=== PATIENT | female | born 1960 | race Caucasian/White ===

== ENCOUNTER 2018-11-23 09:08 | Emergency (ER) | payer BC ==
[2018-11-23 09:33] VITALS: BP 132/62
--- NOTE | 2018-11-23 10:11 | UC ---
Throat Pain/Nasal Mike HPI - HPI Summary HPI Summary: 3 wks of hoarseness at night, sore throat, occasional cough which is worse at night. denies fever, sob. has tried cepacol which sometimes helps and tessalone perles. Evaluated 1 wk ago and went to another urgent care where they rx'd her these meds. was told she was neg. for strep at that time as well. - History of Current Complaint Chief Complaint: UCGeneralIllness Stated Complaint: SORE THROAT Time Seen by Provider: 11/23/18 09:16 Hx Obtained From: Patient Pain Intensity: 8 Pain Scale Used: 0-10 Numeric Cough: Nonproductive Associated Signs & Symptoms: Negative: Wheezing - Allergies/Home Medications Allergies/Adverse Reactions: Allergies Allergy/AdvReac Type Severity Reaction Status Date / Time carbamazepine [From Tegretol] Allergy hives' Verified 11/23/18 09:26 Home Medications: Home Medications Divalproex ER TAB(*) [Depakote ER TAB(*)] 1,000 mg PO DAILY 11/23/18 [History Confirmed 11/23/18] PMH/Surg Hx/FS Hx/Imm Hx Previously Healthy: Yes - Surgical History Surgical History: Yes Surgery Procedure, Year, and Place: hyster - Social History Alcohol Use: Weekly Substance Use Type: None Smoking Status (MU): Former Smoker Review of Systems All Other Systems Reviewed And Are Negative: Yes Constitutional: Positive: Negative Skin: Negative: Rash Eyes: Positive: Negative ENT: Positive: Sore Throat, Other - hoarseness Respiratory: Positive: Cough Cardiovascular: Positive: Negative Neurological: Negative: Headache Physical Exam Triage Information Reviewed: Yes Appearance: Well-Appearing Vital Signs: Initial Vital Signs Temp 98.2 F 11/23/18 09:29 Pulse 78 11/23/18 09:29 Resp 16 11/23/18 09:29 BP 132/62 11/23/18 09:29 Pulse Ox 100 11/23/18 09:29 Vital Signs Reviewed: Yes Eyes: Positive: Conjunctiva Clear ENT: Positive: Pharynx normal, TMs normal, Uvula midline Neck: Positive: Supple, Nontender, No Lymphadenopathy. Negative: Nuchal Rigidity Respiratory Exam: Normal Cardiovascular Exam: Normal Neurological: Positive: Alert Skin: Negative: Rashes Throat Pain/Nasal Course/Dx - Course Assessment/Plan: Sore throat, post nasal drip and occasional cough; subacute. 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 Afebrile. Likely post nasal drip causing night time hoarseness and cough. Continue otc med as well. Lungs clear. rapid strep neg. here. - Differential Dx/Diagnosis Differential Diagnosis/HQI/PQRI: Laryngitis, Pharyngitis, Sinusitis, Tonsillitis , URI Provider Diagnosis: Post-nasal drip, Pharyngitis Discharge - Sign-Out/Discharge Documenting (check all that apply): Patient Departure All imaging exams completed and their final reports reviewed: No Studies - Discharge Plan Condition: Good Disposition: HOME Prescriptions: Amoxicillin/Clavulanate TAB* [Augmentin TAB 875*] 875 mg PO BID 5 Days #10 tab Patient Education Materials: Postnasal Drip (DC) Referrals: Christie Valentino [facility] [Primary Care Provider] - Additional Instructions: This is likely a virus that is lasting a long time but I have sent antibiotics to cover you if this does porcelain turner to be bacterial. - Billing Disposition and Condition Condition: GOOD Disposition: Home
== END 2018-11-23 10:22 | disposition home or self-care (01) ==
LOC: UCEAST 09:08
DX: J02.9 Acute pharyngitis, unspecified (principal); R09.82 Postnasal drip; Z88.8 Allergy status to other drugs, medicaments and biological substances
CPT/HCPCS: 87651; 99212; G0463